=== PATIENT | male | born 1940 | race Caucasian/White ===

== ENCOUNTER 2020-10-19 06:00 | Inpatient (IN) ==
[~2020-10-19 06:00] MED LIST: *HR* FentaNYL (PF) 100 MCG/2 ML VIAL IVP PRN; *HR* HYDROmorphone PF 0.5 MG/0.5 ML SYRINGE IVP PRN; *HR* OxyCODONE Immed Rel 5 MG TABLET PO PRN; Ondansetron 4 MG/2 ML VIAL IVP PRN
[2020-10-19] MEDS ORDERED: levoFLOXacin 500 MG/100 ML 500 MG/100 ML BAG IVPB ONE (06:28)
[2020-10-19] MEDS ORDERED: Bupivacaine-MPF 0.25% 10 ML VIAL ONE (06:45)
[2020-10-19] MEDS ORDERED: Lidocaine HCL 4 ML Topical Solution (Laryng-O-Jet Kit Sterile Pak) TP ONE (06:58)
[2020-10-19] MEDS ORDERED: Famotidine 20 MG/2 ML VIAL IVP ONE (07:00)
[2020-10-19] MEDS ORDERED: Acetaminophen IV 1,000 MG/100 ML BAG IVPB ONE ×2 (07:00→07:13)
[2020-10-19] MEDS ORDERED: *HR* Rocuronium Bromide 50 MG/5 ML VIAL ONE (07:02)
[2020-10-19] MEDS ORDERED: Ondansetron 4 MG/2 ML VIAL ONE (07:02)
[2020-10-19] MEDS ORDERED: *HR* Phenylephrine 10 MG/ML VIAL ONE (07:02)
[2020-10-19] MEDS ORDERED: Lidocaine -MPF 2% 2 ML VIAL ONE (07:02)
[2020-10-19] MEDS ORDERED: *HR* Propofol 200 MG/20 ML VIAL IVP ONE (07:04)
[2020-10-19] MEDS ORDERED: *HR* FentaNYL (PF) 100 MCG/2 ML VIAL ONE (07:04)
[2020-10-19] MEDS ORDERED: *HR* Vasopressin 20 UNIT/ML VIAL ONE (07:14)
[2020-10-19] MEDS: Ringers Solution, Lactated 1,000 ML IVC SCH ×2 (07:23→08:52)
[2020-10-19] MEDS ORDERED: *HR* HYDROMORPHONE 2 MG/ML VIAL ONE (08:26)
[2020-10-19] MEDS ORDERED: *HR* Labetalol 20 MG/4 ML SYRINGE IVP ONE (08:34)
[2020-10-19] MEDS ORDERED: Sugammadex Sodium 200 MG/2 ML VIAL IV ONE (08:47)
[2020-10-19] MEDS ORDERED: Naloxone 0.4 MG/ML INJ IVP PRN (10:47)
[2020-10-19] MEDS ORDERED: Ondansetron 4 MG/2 ML VIAL IVP PRN (10:47)
[2020-10-19] MEDS: *HR* OxyCODONE Immed Rel 5 MG TABLET PO PRN (13:08)
[2020-10-19] MEDS: 0.9 % Sodium Chloride 1,000 ML IVC SCH (13:09)
[2020-10-19] MEDS: *HR* HYDROcodone/Acet 5/325 mg TABLET PO PRN (19:41)
[2020-10-19] MEDS: amLODIPine 5 MG TABLET PO SCH (20:58)
[2020-10-20] MEDS: *HR* OxyCODONE Immed Rel 5 MG TABLET PO PRN ×2 (00:22→16:00)
[2020-10-20] MEDS: Famotidine 20 MG TABLET PO SCH ×3 (01:07→22:36)
[2020-10-20] MEDS: 0.9 % Sodium Chloride 1,000 ML IVC SCH (01:08)
[2020-10-20 01:23] LABS: Lymphocytes % 9.5 %; Mean Platelet Volume 11.7 fL (9.4-12.4); Red Cell Distribution Width 13.3 % (11.5-14.5); Segmented Neutrophils % 81.5 %
[2020-10-20 01:25] LABS: Basophils % 0.1 %; Hematocrit 38.7 % (37.5-50.1); Hemoglobin 13.1 g/dL (12.9-16.9); Immature Granulocytes % 0.5 % (0-4); Immature Platelets 7.4 % (1.1-6.1); Lymphocytes # 0.9 K/mcL (0.6-4.6); Mean Corpuscular HGB Conc 33.9 g/dL (31.6-35.5); Mean Corpuscular Hemoglobin 30.5 pg (28.0-33.3); Mean Corpuscular Volume 90.2 fL (83.0-100.0); Monocytes # 0.8 K/mcL (0.0-1.3); Monocytes % 8.4 %; Neutrophils # 8.1 K/mcL (1.6-8.9); Platelet Count 133 K/mcL (140-400); Red Blood Count 4.29 M/mcL (4.19-5.50); White Blood Count 9.9 K/mcL (4.3-11.1)
[2020-10-20 01:48] LABS: Calcium 7.9 mg/dL (8.6-10.3); Potassium 3.9 mEq/L (3.5-5.1)
[2020-10-20] MEDS: Finasteride 5 MG TABLET PO SCH (09:00)
[2020-10-20] MEDS ORDERED: Bisacodyl 10 MG RECTAL SUPPOSITORY RC ONE (13:42)
[2020-10-20] MEDS: amLODIPine 5 MG TABLET PO SCH (22:36)
[2020-10-20] MEDS: *HR* HYDROcodone/Acet 5/325 mg TABLET PO PRN (22:36)
[2020-10-21] MEDS: *HR* HYDROcodone/Acet 5/325 mg TABLET PO PRN ×2 (05:00→20:50)
[2020-10-21] MEDS: Famotidine 20 MG TABLET PO SCH ×2 (11:08→19:24)
[2020-10-21] MEDS: Finasteride 5 MG TABLET PO SCH (11:08)
[2020-10-21] MEDS: Bisacodyl 10 MG RECTAL SUPPOSITORY RC SCH (11:11)
[2020-10-21] MEDS ORDERED: Metoclopramide 10 MG/2 ML VIAL IVP ONE (14:22)
[2020-10-21] MEDS: 0.9 % Sodium Chloride 1,000 ML IVC SCH ×2 (19:24→19:25)
[2020-10-21] MEDS: amLODIPine 5 MG TABLET PO SCH (20:50)
[2020-10-22 06:55] VITALS: BP 154/100; PULSE 88; TEMP 98.5; O2SAT 91
[2020-10-22] MEDS: Finasteride 5 MG TABLET PO SCH (08:51)
[2020-10-22] MEDS: Famotidine 20 MG TABLET PO SCH (08:52)
[2020-10-22] MEDS: Bisacodyl 10 MG RECTAL SUPPOSITORY RC SCH (08:52)
== END 2020-10-22 11:39 | disposition home or self-care (01) | DRG 658 ==
LOC: SAMDAY 06:00 → 3ANU 10:46
PROVIDERS: ADMIT Urology; ATTEND Urology